=== PATIENT | male | born 1975 | race Two or more races ===

== ENCOUNTER 2025-03-11 16:59 | Emergency (ER) | payer MEDICAID, SELFPAY ==
--- NOTE | 2025-03-11 17:03 | EKG_ITS ---
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
[2025-03-11 17:08] VITALS: BP 133/87; PULSE 114; RESP 18; TEMP 37.1; O2SAT 95
--- NOTE | 2025-03-11 17:10 | XR_ITS ---
Examination: PA lateral chest 2 views FINDINGS: Upright PA and lateral chest 2 views Date and time: March 11, 2025, 1715 hours INDICATIONS: Chest pain shortness of breath beginning today. FINDINGS: Normal heart size Subsegmental atelectasis in the lingular segment. No pneumonia or pulmonary edema. The osseous structures are intact. IMPRESSION: No pneumonia or pulmonary edema.
--- NOTE | 2025-03-11 17:10 | PD.EDRME ---
Rapid Medical Screening Exam RME Arrival date/time: 03/11/25 16:59 49-year-old male presents to the Emergency Department for complaints of chest pain shortness of breath Chief Complaint: Chest Pain Vital signs: Vital Signs Temperature 98.7 F 03/11/25 17:08 Pulse Rate 114 H 03/11/25 17:08 Respiratory Rate 18 03/11/25 17:08 Blood Pressure 133/87 H 03/11/25 17:08 Pulse Oximetry (%) 95 03/11/25 17:08 Oxygen Delivery Method Room Air 03/11/25 17:08
--- NOTE | 2025-03-11 17:52 | PD.EDCHEST ---
ED Chest Pain RME/HPI General Chief Complaint: Chest Pain Stated Complaint: CHEST PAIN X2 MONTHS Arrival date/time: 03/11/25 16:59 Limitations: no limitations RME / HPI RME / HPI narrative: 03/11/25 16:59 49-year-old male presents to the Emergency Department for complaints of chest pain shortness of breath. Patient has a history of methamphetamine use, daily alcohol use, has never gone to withdrawal. Last drink was approximately 2 days ago. Patient also has a history of fluid in the lungs requiring thoracentesis approximately 2 months ago that was performed at an outside hospital. 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 Patient takes medications for heart failure, states that he is compliant with his medications. States that over the last week has had abdominal pain, distention feeling full. Denies chest pain palpitations cough runny nose dysuria hematuria melena bloody stools. MD complaint: other (Abdominal pain) Related Data Allergies Allergy/AdvReac Type Severity Reaction Status Date / Time No Known Allergies Allergy Verified 03/11/25 17:00 ED Exam General Limitations: Present no limitations General appearance: Present alert Head Head exam: Present atraumatic Eye Eye exam: Present normal appearance ENT ENT exam: Present normal exam Neck Neck exam: Present normal inspection Chest Chest inspection: Present normal inspection Respiratory Respiratory exam: Absent respiratory distress Cardiovascular Cardiovascular exam: Present normal rhythm and tachycardia Abdominal Exam Abdominal exam: Present soft, distention and tenderness Course Orders Category Date Time Status EKG (ED ONLY) *Do not use* NOW Care 03/11/25 17:03 Completed EKG (ED Only) Stat Exams 03/11/25 17:03 Draft XR chest 2V Stat Exams 03/11/25 17:10 Completed B-Type Natriuretic Peptide Stat Lab 03/11/25 17:10 Ordered CBC Stat Lab 03/11/25 17:10 Ordered Comprehensive Metabolic Panel Stat Lab 03/11/25 17:10 Ordered D-Dimer Stat Lab 03/11/25 17:10 Ordered Drug Screen,Urine Stat Lab 03/11/25 17:10 Ordered Magnesium Stat Lab 03/11/25 17:10 Ordered Partial Thromboplastin Time Stat Lab 03/11/25 17:10 Ordered Prothrombin Time with INR Stat Lab 03/11/25 17:10 Ordered Troponin I Stat Lab 03/11/25 17:10 Ordered Urinalysis, C/S if Indicated Stat Lab 03/11/25 17:10 Ordered Vital Signs Vital signs: Vital Signs Temperature 98.7 F 03/11/25 17:08 Pulse Rate 114 H 03/11/25 17:08 Respiratory Rate 18 03/11/25 17:08 Blood Pressure 133/87 H 03/11/25 17:08 Pulse Oximetry (%) 95 03/11/25 17:08 Oxygen Delivery Method Room Air 03/11/25 17:08 Discharge Plan Prescriptions/Referrals Referrals: No Primary/Family,Physician [Primary Care Provider] - In 1 week Patient/Caregiver Discharge Instructions Print Language: Citizen Of [place]
[2025-03-11 18:12] LABS: Collection Type, Urine Clean Catch; Squamous Epithelial Cell,Urine 0 /hpf (0-5)
[2025-03-11 18:22] LABS: Basophils # (Auto) 0.0 Thou/mm3 (0.0-0.2); Basophils % (Auto) 0 % (0-2.5); Eosinophils # (Auto) 0.1 Thou/mm3 (0.0-0.5); Eosinophils % (Auto) 1 % (0-10); Hematocrit 43.7 % (41.0-53.0); Hemoglobin 14.6 g/dL (13.5-16.0); Immature Granulocytes Auto 0.02 Thou/mm3 (0.00-0.00); Lymphocytes # (Auto) 2.3 Thou/mm3 (1.0-4.8); Lymphocytes % (Auto) 29 % (10-50); Mean Corpuscular HGB Conc 33.4 g/dl (31.0-37.0); Mean Corpuscular Hemoglobin 28.5 pg (25.0-35.0); Mean Corpuscular Volume 85 fL (80-100); Monocytes # (Auto) 0.8 Thou/mm3 (0.0-0.8); Monocytes % (Auto) 10 % (0-12); Neutrophils # (Auto) 4.7 Thou/mm3 (1.8-7.7); Neutrophils % (Auto) 60 % (37-80); Nucleated Red Blood Cell # 0.00 Thou/mm3 (0.00-0.00); Nucleated Red Blood Cell % 0 /100 WBC (0); Platelet Count 376 Thou/mm3 (140-440); RDW Standard Deviation 37.8 fL (35.1-43.9); Red Blood Count 5.13 Miln/mm3 (4.50-5.90); White Blood Count 7.9 Thou/mm3 (3.8-10.6)
[2025-03-11 18:26] LABS: Amphetamine/Methamp Scrn,U Negative (Negative); Barbiturate Screen,Urine Negative (Negative); Benzodiazepines Screen,Urine Negative (Negative); Benzoylecgonine Screen, Ur Negative (Negative); Fentanyl Screen,Urine Negative (Negative); Opiate Screen,Urine Negative (Negative); THC Screen,Urine Negative (Negative)
[2025-03-11 18:33] LABS: Alanine Aminotransferase 38 U/L (10-49); Albumin, Serum 4.8 gm/dL (3.5-5.0); Albumin/Globulin Ratio 1.8 (1.2-2.2); Alkaline Phosphatase 103 U/L (46-116); Anion Gap 11 (7-16); Aspartate Amino Transferase 31 U/L (0-34); BUN/Creatinine Ratio 29 Ratio (12-20); Bilirubin,Total 1.7 mg/dL (0.3-1.2); Blood Urea Nitrogen 23 mg/dL (9-23); Calcium 10.3 mg/dL (8.3-10.6); Calcium (Corrected) 10.3 mg/dL (8.5-10.1); Carbon Dioxide 24.8 mMol/L (20.0-31.0); Chloride 104 mMol/L (98-107); Creatinine (Component) 0.8 mg/dL (0.6-1.3); Globulin 2.7 gm/dL (2.3-3.5); Glucose 128 mg/dL (74-106); Magnesium 1.9 mg/dL (1.6-2.6); Osmolality,Calculated 285 (275-295); Potassium 4.1 mMol/L (3.4-5.1); Sodium 140 mMol/L (136-145); Total Protein 7.5 gm/dL (5.7-8.2); Troponin I < 0.002 ng/mL (0.0-0.045); eGFR > 60 See Note
[2025-03-11 18:34] LABS: INR 1.1 (0.9-1.3); Partial Thromboplastin Time 27.6 Seconds (22.0-36.0); Prothrombin Time 11.6 Seconds (9.0-12.2)
[2025-03-11 18:38] LABS: Bilirubin,Urine Negative (Negative); Blood,Urine Negative (Negative); Clarity,Urine Clear (Clear/Hazy); Color,Urine Yellow (Lt Yel-Yel); Culture Indicated,Urine Not Indicated; Glucose, Urine 4+ (Negative); Ketones,Urine Trace (Negative); Leukocyte Esterase,Urine Negative (Negative); Nitrite,Urine Negative (Negative); PH,Urine 5.5 (5.0-7.0); Protein,Urine 1+ (Neg - Trace); RBC,Urine 1 /hpf (0-3); Urobilinogen,Urine Negative mg/dL (0.0-1.0); WBC,Urine 1 /hpf (0-5)
[2025-03-11 18:44] LABS: B-Type Natriuretic Peptide < 20 pg/mL (0-100)
[2025-03-11 18:44] LABS: Specific Gravity,Urine > 1.030 (1.001-1.035)
[2025-03-11 18:48] LABS: D-Dimer < 250 ng/mL (<600)
[2025-03-11 20:44] VITALS: BP 119/80; PULSE 104; RESP 20; TEMP 37; O2SAT 98
--- NOTE | 2025-03-11 20:52 | EDNOTE_ITS ---
ED Chest Pain RME/HPI General Chief Complaint: Chest Pain Stated Complaint: CHEST PAIN X2 MONTHS Time Seen by Provider: 03/11/25 17:55 Source: patient and family Arrival date/time: 03/11/25 16:59 Limitations: no limitations RME / HPI RME / HPI narrative: 49-year-old male who states that his . He states he is here today with a 1 month history of left-sided chest pain. He also endorses some palpitations with this. Denies any abdominal pain, nausea, vomiting. No lower leg edema. No shortness of breath or cough. Denies any fevers or chills. Denies any past surgeries. He does endorse a history of hypertension. No history of ACS. He states he went to his primary doctor for this but was brought here for evaluation of possible emergent etiology. He has no other acute complaints. MD complaint: chest pain Related Data Allergies Allergy/AdvReac Type Severity Reaction Status Date / Time No Known Allergies Allergy Verified 03/11/25 17:00 Review of Systems Review of Systems Systems Reviewed: All systems reviewed, normal except as documented ED Exam General Limitations: Present no limitations General appearance: Present alert Head Head exam: Present atraumatic Eye Eye exam: Present normal appearance, PERRL and EOMI ENT ENT exam: Present normal exam, normal oropharynx and mucous membranes moist Neck Neck exam: Present normal inspection, full ROM and trachea midline Chest Chest inspection: Present normal inspection and symmetric chest wall rise Respiratory Respiratory exam: Present normal lung sounds bilaterally Cardiovascular Cardiovascular exam: Present tachycardia and normal heart sounds Abdominal Exam Abdominal exam: Present soft and normal bowel sounds Extremities Exam Extremities exam: Present normal inspection and full ROM Back Exam Back exam: Present normal inspection and full ROM Neurological Exam Neurological exam: Present alert and oriented X3 Psychiatric Psychiatric exam: Present normal affect and normal mood Skin Skin exam: Present warm, dry, intact and normal color Course Quality Measures none Orders Category Date Time Status EKG (ED ONLY) *Do not use* NOW Care 03/11/25 17:03 Completed EKG (ED Only) Stat Exams 03/11/25 17:03 Draft XR chest 2V Stat Exams 03/11/25 17:10 Completed B-Type Natriuretic Peptide Stat Lab 03/11/25 17:56 Completed CBC Stat Lab 03/11/25 17:56 Completed Comprehensive Metabolic Panel Stat Lab 03/11/25 17:56 Completed D-Dimer Stat Lab 03/11/25 17:56 Completed Drug Screen,Urine Stat Lab 03/11/25 18:00 Completed Magnesium Stat Lab 03/11/25 17:56 Completed Partial Thromboplastin Time Stat Lab 03/11/25 17:56 Completed Prothrombin Time with INR Stat Lab 03/11/25 17:56 Completed Troponin I Stat Lab 03/11/25 17:56 Completed Urinalysis, C/S if Indicated Stat Lab 03/11/25 18:00 Completed Acetaminophen Tab [Tylenol Tab] Med 03/11/25 20:59 Once 1,000 mg PO X1 ONE Vital Signs Vital signs: Vital Signs Temperature 98.7 F 03/11/25 17:08 Pulse Rate 114 H 03/11/25 17:08 Respiratory Rate 18 03/11/25 17:08 Blood Pressure 133/87 H 03/11/25 17:08 Pulse Oximetry (%) 95 03/11/25 17:08 Oxygen Delivery Method Room Air 03/11/25 17:08 Chest Pain MDM Narrative MDM Narrative:: 49-year-old male who states that his . He states he is here today with a 1 month history of left-sided chest pain. He also endorses some palpitations with this. Denies any abdominal pain, nausea, vomiting. No lower leg edema. No shortness of breath or cough. Denies any fevers or chills. Denies any past surgeries. He does endorse a history of hypertension. No history of ACS. He states he went to his primary doctor for this but was brought here for evaluation of possible emergent etiology. He has no other acute complaints. On exam, patient is nontoxic-appearing and in no visible signs of distress. He has no lower leg edema. He has no respiratory distress. Lung tones are clear bilaterally. At the time of my exam he had mild tachycardia at 104 bpm, vital signs are otherwise unremarkable. Workup reveals no leukocytosis or anemia. His metabolic panel is unremarkable with exception of mildly elevated glucose at 128. T. bili is 1.7. Urinalysis is unremarkable. Urine drug screen is negative. D-dimer is unremarkable. Chest x-ray was clear expanded lung study mass or infiltrate. EKG revealed sinus tachycardia with no ST changes or dynamic T waves. I do believe the patient is safe for outpatient follow-up. We discussed his test results in detail. He agrees to contact his primary doctor to schedule close follow-up appointment. Will also have him follow-up with cardiology as an outpatient. He may return here as needed for any worsening changes. Patient data External records reviewed:: None Clinical information provided by:: patient Social determinants that could affect healthcare access:: none Patient has the following chronic illnesses:: HTN, DM How is presenting disease/condition affected by chronic disease/condition?: exa cerbated by Evaluation data The following diagnostics were reviewed and interpreted by me:: lab results (CBC, CMP, troponin, D-dimer all unremarkable.), radiology exam(s) (Clear expanded lungs without any mass infiltrate) and EKG tracing(s) (Sinus tachycardia no ST changes or dynamic T waves.) Lab and/or radiology exams considered but not ordered:: n/a Interpretation Summary: Work appears unremarkable Medications / Prescriptions Medications or Prescriptions considered but not ordered:: n/a Medication administrations:: Medication Administration History Acetaminophen (Acetaminophen 325 Mg Tablet) 1,000 mg PO X1 ONE Stop: 03/11/25 21:00 n/a Consultations Consultation(s) initiated? (list below): No Diagnosis Chest Pain Differential Diagnosis: st elevation myocardial infarction, cost ochondritis and chest pain Most likely diagnosis given after review of the tests above:: Tachycardia, chest pain Admission Indicated Admission indicated?: not indicated Admission Request Was there a request for admission?: No Disposition Plan Disposition Plan: Discharge Discharge Attestation Discharge Attestation: The patient and all family members were given an opportunity to ask questions and understood the discharge instructions. Discharge instructions specifically effects, indications for sooner follow up or return to the emergency department, and the expected course of current diagnosis. Patient condition: Stable Discharge Plan Plan Patient Disposition: HOME (Self Care) Patient condition on transfer: Stable Prescriptions/Referrals Referrals: No Primary/Family,Physician [Primary Care Provider] - In 1 week Carmelo Modi MD [Physician] - In 1 week Problem List Clinical Impression: Chest pain, Tachycardia Patient/Caregiver Discharge Instructions Education Materials: ED Chest Pain, Uncertain Cause Additional Instructions: - Your workup today was unremarkable. -Please contact your primary doctor tomorrow to schedule close follow-up appointment. - You may also contact cardiology to schedule follow-up appointment. - Return here at anytime for any worsening or emergent changes. Print Language: Filipino Stand Alone Forms: Romelia Award Info., Patient Portal Info Letter
[2025-03-11] MEDS: ACETAMINOPHEN 500 MG TABLET 1000 MG PO (21:24)
== END 2025-03-11 21:26 | disposition home or self-care (01) ==
PROVIDERS: Nurse Practitioner Primary Care; Emergency Provider Emergency Medicine
DX: R07.9 Chest pain, unspecified (principal); R00.0 Tachycardia, unspecified; E11.65 Type 2 diabetes mellitus with hyperglycemia; I10 Essential (primary) hypertension
CPT/HCPCS: 36415; 71046; 80053; 80307; 81001; 83735; 83880; 84484; 85025; 85379; 85610; 85730; 93005; 99283; A9270

== ENCOUNTER 2025-07-16 15:08 | Emergency (ER) | payer MEDICAID, SELFPAY ==
[2025-07-16 15:36] VITALS: BP 147/92; PULSE 97; RESP 18; TEMP 37.1; O2SAT 98
--- NOTE | 2025-07-16 15:45 | XR_ITS ---
Examination: CT brain head without contrast. 2-D sagittal coronal reconstructions Date and time of exam: 07/16/2025 at 4:15 p.m. CTDI: vol (mGy): 50.8 DLP: (mGycm): 1061 INDICATION: Blurriness in the right vision Technique: Multiple CT axial sections of the brain have been obtained, 5 mm slice thickness. Contrast has not been administered. 2-D sagittal, coronal reconstructions have been obtained Low dose protocols were performed. One or more of the following dose reduction techniques were used; automated exposure control, adjustment of the mA and/or KV according to patient size, use of iterative reconstruction technique. Findings: There is mild dilatation of the cortical sulci overlying both right and left frontal lobes with mild dilatation of the extra-axial space over the anterior temporal lobes. The bodies of the lateral ventricles are very minimally prominent in size, in a patient this age There is moderately heavy atherosclerotic calcification involving the right and left internal carotid arteries in the region of the cavernous sinus No abnormalities are seen involving the thomas or white matter anywhere in the cerebrum cerebellum or brainstem. The paranasal sinuses and mastoids and middle ear structure all appear normal. With reference to the patient's visual problems, I do not see any abnormalities involving the globe or orbit on either side Impression: 1 there is mild but I believe definite cortical atrophy over the frontal lobes and anterior temporal lobes in this 50-year-old patient. Also suspect very minor dilatation of the lateral ventricles 2 in all other respects, no abnormalities are seen anywhere in the thomas or white matter above or below the tentorium 3 specifically no orbital abnormalities are identified either
--- NOTE | 2025-07-16 15:46 | PD.EDRME ---
Rapid Medical Screening Exam [facility] Arrival date/time: 07/16/25 15:08 50-year-old male with a history of type 2 diabetes, hypertension presents to the emergency room with a chief complaint of right eye visual disturbances x 1 week. Patient states he sees black spotting in his right eye. Patient was at his ophthalmology appointment and was sent to the emergency room to rule out any CVA I have greeted and performed a focused initial assessment of this patient. A comprehensive ED assessment and evaluation of the patient, analysis of all test results, and completion of the medical decision making process will be conducted by additional ED providers. Chief Complaint: Eye Problems Vital signs: Vital Signs Temperature 98.7 F 07/16/25 15:36 Pulse Rate 97 07/16/25 15:36 Respiratory Rate 18 07/16/25 15:36 Blood Pressure 147/92 H 07/16/25 15:36 Pulse Oximetry (%) 98 07/16/25 15:36 Oxygen Delivery Method Room Air 07/16/25 15:36 Vital signs reviewed by provider: Yes Exam: GCS of 15 alert and oriented x 3 no unilateral numbness Clear bilateral lung sounds Clinical Impression: CVA/visual disturbance
[2025-07-16 16:25] LABS: Collection Type, Urine Clean Catch
[2025-07-16 16:40] LABS: Beta Hydroxybutyrate 0.1 mmol/L (<0.6)
[2025-07-16 16:40] LABS: Bilirubin,Urine Negative (Negative); Blood,Urine Negative (Negative); Clarity,Urine Clear (Clear/Hazy); Color,Urine Lt-Yellow (Lt Yel-Yel); Culture Indicated,Urine Not Indicated; Glucose, Urine Negative (Negative); Ketones,Urine Negative (Negative); Leukocyte Esterase,Urine Negative (Negative); Nitrite,Urine Negative (Negative); PH,Urine 5.5 (5.0-7.0); Protein,Urine Trace (Neg - Trace); RBC,Urine < 1 /hpf (0-3); Specific Gravity,Urine 1.021 (1.001-1.035); Squamous Epithelial Cell,Urine < 1 /hpf (0-5); Urobilinogen,Urine Negative mg/dL (0.0-1.0); WBC,Urine 1 /hpf (0-5)
[2025-07-16 16:50] LABS: Glucose Estimated Average 134 mg/dL (80-131); Hemoglobin A1C 6.3 % Hgb (4.8-6.0)
[2025-07-16 17:01] LABS: Alanine Aminotransferase 20 U/L (10-49); Albumin, Serum 4.7 gm/dL (3.5-5.0); Albumin/Globulin Ratio 1.5 (1.2-2.2); Alkaline Phosphatase 92 U/L (46-116); Anion Gap 12 (7-16); Aspartate Amino Transferase 19 U/L (0-34); BUN/Creatinine Ratio 16 Ratio (12-20); Bilirubin,Total 1.6 mg/dL (0.3-1.2); Blood Urea Nitrogen 11 mg/dL (9-23); Calcium 9.6 mg/dL (8.3-10.6); Calcium (Corrected) 9.6 mg/dL (8.5-10.1); Carbon Dioxide 27.6 mMol/L (20.0-31.0); Chloride 106 mMol/L (98-107); Creatinine (Component) 0.7 mg/dL (0.6-1.3); Estimated Creatinine Clearance 121.5 mL/min (>60); Globulin 3.1 gm/dL (2.3-3.5); Glucose 123 mg/dL (74-106); Osmolality,Calculated 290 (275-295); Potassium 3.6 mMol/L (3.4-5.1); Sodium 146 mMol/L (136-145); Total Protein 7.8 gm/dL (5.7-8.2); eGFR > 60 See Note
[2025-07-16 17:05] LABS: Basophils # (Auto) 0.0 Thou/mm3 (0.0-0.2); Basophils % (Auto) 0 % (0-2.5); Eosinophils # (Auto) 0.1 Thou/mm3 (0.0-0.5); Eosinophils % (Auto) 1 % (0-10); Hematocrit 41.9 % (41.0-53.0); Hemoglobin 14.3 g/dL (13.5-16.0); Immature Granulocytes Auto 0.02 Thou/mm3 (0.00-0.00); Lymphocytes # (Auto) 2.4 Thou/mm3 (1.0-4.8); Lymphocytes % (Auto) 34 % (10-50); Mean Corpuscular HGB Conc 34.1 g/dl (31.0-37.0); Mean Corpuscular Hemoglobin 28.9 pg (25.0-35.0); Mean Corpuscular Volume 85 fL (80-100); Monocytes # (Auto) 0.7 Thou/mm3 (0.0-0.8); Monocytes % (Auto) 10 % (0-12); Neutrophils # (Auto) 4.0 Thou/mm3 (1.8-7.7); Neutrophils % (Auto) 55 % (37-80); Nucleated Red Blood Cell # 0.00 Thou/mm3 (0.00-0.00); Nucleated Red Blood Cell % 0 /100 WBC (0); Platelet Count 336 Thou/mm3 (140-440); RDW Standard Deviation 39.0 fL (35.1-43.9); Red Blood Count 4.94 Miln/mm3 (4.50-5.90); White Blood Count 7.3 Thou/mm3 (3.8-10.6)
[2025-07-16 17:38] LABS: INR 1.1 (0.9-1.3); Partial Thromboplastin Time 27.6 Seconds (22.0-36.0); Prothrombin Time 11.3 Seconds (9.0-12.2)
--- NOTE | 2025-07-16 18:15 | EDNOTE_ITS ---
ED Eye Problem RME/HPI General Chief complaint: Eye Problems Stated complaint: R EYE BLURRINESS, SEEING DARK SPOTS Time Seen by Provider: 07/16/25 18:09 Arrival date/time: 07/16/25 15:08 50-year-old male with a history of type 2 diabetes, hypertension presents to the emergency room with a chief complaint of right eye visual disturbances x 1 week. Patient states he sees black spotting in his right eye. Patient was at his ophthalmology appointment and was sent to the emergency room to rule out any CVA. Severity of symptoms moderate. Patient denies any headache denies any head trauma denies any fever denies any other complaints no medication was taken prior to ER visit. RME / HPI RME / HPI Narrative: 07/16/25 15:08 50-year-old male with a history of type 2 diabetes, hypertension presents to the emergency room with a chief complaint of right eye visual disturbances x 1 week. Patient states he sees black spotting in his right eye. Patient was at his ophthalmology appointment and was sent to the emergency room to rule out any CVA I have greeted and performed a focused initial assessment of this patient. A comprehensive ED assessment and evaluation of the patient, analysis of all test results, and completion of the medical decision making process will be conducted by additional ED providers. Exam: GCS of 15 alert and oriented x 3 no unilateral numbness Clear bilateral lung sounds Impression: CVA/visual disturbance Related Data Allergies Allergy/AdvReac Type Severity Reaction Status Date / Time No Known Allergies Allergy Verified 07/16/25 15:15 Review of Systems Review of Systems Narrative Review of Systems: Review of system reviewed and within normal limits except mentioned in HPI ED Exam Narrative Physical exam: VITAL SIGNS: Reviewed. GENERAL APPEARANCE: Alert and interactive, follows commands, no acute distress, HEAD AND FACE: Non-traumatic. ENT: PERRL, pink conjunctivitis, eyelid no trauma, Mucous membrane moist. Visual activity, see nurses notes NECK: Supple, nontender, no nuchal rigidity. CHEST: No tenderness, no crepitus, no paradoxical movement, no retractions. LUNGS: Clear, well ventilated, symmetric, no rales, no wheezing, no ronchi, no stridor, good breath sounds bilaterally. HEART: Regular rate, regular rhythm, no murmur, no gallops. ABDOMEN: Soft, positive bowel sounds, nondistended, no guarding, nontender, no rebound, no masses, RECTAL: Deferred. GENITAL: Deferred. NEUROLOGICAL: Gross motor function intact sensory function intact, Appropriate for age. MUSCULOSKELETAL: low back nontender, full range of motion. EXTREMITIES: Nontender, full range of motion. SKIN: Color pink, dry, no rash, no lacerations, no abrasions, no contusions. LYMPHATICS: Deferred. Course Quality Measures none Orders Category Date Time Status CT head/brain wo con Stat Exams 07/16/25 15:45 Completed A1C [Glycohemoglobin w (eAG)] Stat Lab 07/16/25 16:20 Completed Beta Hydroxybutyrate Stat Lab 07/16/25 16:20 Completed CBC Stat Lab 07/16/25 16:20 Completed CMP [Comprehensive Metabolic Panel] Stat Lab 07/16/25 16:20 Completed PT [Prothrombin Time with INR] Stat Lab 07/16/25 16:20 Completed PTT [Partial Thromboplastin Time] Stat Lab 07/16/25 16:20 Completed UA, C/S IF [Urinalysis, C/S if Indicated] Stat Lab 07/16/25 16:15 Completed Vital Signs Vital signs: Vital Signs Temperature 98.7 F 07/16/25 15:36 Pulse Rate 97 07/16/25 15:36 Respiratory Rate 18 07/16/25 15:36 Blood Pressure 147/92 H 07/16/25 15:36 Pulse Oximetry (%) 98 07/16/25 15:36 Oxygen Delivery Method Room Air 07/16/25 15:36 Eye MDM Narrative MDM Narrative:: 50-year-old male with a history of type 2 diabetes, hypertension presents to the emergency room with a chief complaint of right eye visual disturbances x 1 week. Patient states he sees black spotting in his right eye. Patient was at his ophthalmology appointment and was sent to the emergency room to rule out any CVA. Severity of symptoms moderate. Patient denies any headache denies any head trauma denies any fever denies any other complaints no medication was taken prior to ER visit. Patient's workup today all came back unremarkable CT scan of the head did not show any acute pathology noted. 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 She is stable for discharge home Patient data External records reviewed:: None Clinical information provided by:: patient and family Social determinants that could affect healthcare access:: none Patient has the following chronic illnesses:: Diabetes mellitus hypertension How is presenting disease/condition affected by chronic disease/condition?: exacerbated by Evaluation data The following diagnostics were reviewed and interpreted by me:: lab results and radiology exam(s) Lab and/or radiology exams considered but not ordered:: None Interpretation Summary: See above Medications / Prescriptions Medications or Prescriptions considered but not ordered:: None Medication administrations:: None Consultations Consultation(s) initiated? (list below): No Diagnosis Eye Problem Differential Diagnosis: acute iritis and other (Blurry vision, cataract, retinal detachment) Most likely diagnosis given after review of the tests above:: Blurry vision Admission Indicated Admission indicated?: not indicated Admission Request Was there a request for admission?: No Disposition Plan Disposition Plan: Discharge Discharge Attestation Discharge Attestation: The patient and all family members were given an opportunity to ask questions and understood the discharge instructions. Discharge instructions specifically effects, indications for sooner follow up or return to the emergency department, and the expected course of current diagnosis. Patient condition: Stable Discharge Plan Plan Patient Disposition: HOME (Self Care) Discharge Disposition comment: Stable Prescriptions/Referrals Referrals: No Primary/Family,Physician [Primary Care Provider] - In 1 week Problem List Clinical Impression: Blurred vision, History of diabetes mellitus Patient/Caregiver Discharge Instructions Discharge Activity: activity as tolerated Education Materials: ED Blurred Vision Additional Instructions: Thank you for the opportunity for serving you today. You are stable for discharged . You are advised to: Follow-up with your retail customer service specialist in the morning. Return to ED for worsening of symptoms Increase oral fluids CT scan of your head today did not show any sign of stroke. Print Language: Nepali Stand Alone Forms: Romelia Award Info., Patient Portal Info Letter PA/JOSÉ LUIS Supervising Physician MYRIAM/JOSÉ LUIS Supervising Physician: MD Loren
[2025-07-16 18:17] VITALS: PULSE 86; RESP 19; TEMP 36.4; O2SAT 97
== END 2025-07-16 18:26 | disposition home or self-care (01) ==
PROVIDERS: Nurse Practitioner Family; Emergency Provider Emergency Medicine
DX: H53.8 Other visual disturbances (principal); E11.9 Type 2 diabetes mellitus without complications; I10 Essential (primary) hypertension
CPT/HCPCS: 36415; 70450; 80053; 81001; 82010; 83036; 85025; 85610; 85730; 99283